=== PATIENT | female | born 1990 | race Caucasian/White ===

== ENCOUNTER 2017-04-11 12:53 | Emergency (ER) | payer OTHER ==
[~2017-04-11 12:53] MED LIST: ZOF4 PO
[2017-04-11 15:22] VITALS: BP 135/91
== END 2017-04-11 15:22 | disposition home or self-care (01) ==
LOC: ED 12:53
DX: K29.70 Gastritis, unspecified, without bleeding (principal)
CPT/HCPCS: Q0162

== ENCOUNTER 2017-04-17 18:31 | Emergency (ER) | payer OTHER ==
[~2017-04-17] VITALS: Ht 172.7 cm; Wt 85.9 kg
[2017-04-17 20:45] VITALS: BP 107/69
== END 2017-04-17 21:10 | disposition home or self-care (01) ==
LOC: ED 18:31
DX: S93.401A Sprain of unspecified ligament of right ankle, initial encounter (principal); R51 Headache; R11.0 Nausea; X50.1XXA Overexertion from prolonged static or awkward postures, initial encounter; Y93.89 Activity, other specified; Y99.8 Other external cause status; Y92.89 Other specified places as the place of occurrence of the external cause
CPT/HCPCS: J1200; J1885; J2765; J7030

== ENCOUNTER 2017-11-23 21:13 | Emergency (ER) | payer OTHER ==
[2017-11-24 00:42] VITALS: BP 127/85
== END 2017-11-24 00:52 | disposition home or self-care (01) ==
LOC: ED 21:13
DX: Z48.01 Encounter for change or removal of surgical wound dressing (principal)

== ENCOUNTER 2018-02-22 16:38 | Emergency (ER) | payer OTHER ==
[~2018-02-22] VITALS: Ht 172.7 cm; Wt 85.7 kg
[2018-02-22 16:46] VITALS: Ht 172.7 cm; Wt 85.7 kg
[2018-02-22 19:10] LABS: UA SPECIFIC GRAVITY 1.025 (1.005-1.035); microscopic required? YES; urine erythrocyte TRACE (NEGATIVE)
[2018-02-22 19:15] LABS: BASOPHIL % 0.5 % (0-2); PLATELET COUNT 312 x10^3mcL (130-400); RED CELL DISTRIBUTION WIDTH 12.2 % (11.5-14.5)
[2018-02-22 19:26] LABS: ALBUMIN 3.7 g/dL (3.4-5.0); ALKALINE PHOSPHATASE 86 U/L (46-116); ALT/SGPT 130 U/L (14-59); AST/SGOT 79 U/L (15-37); BILIRUBIN TOTAL 0.4 mg/dL (0.20-1.00); CALCIUM 9.2 mg/dL (8.5-10.1); CHLORIDE SERUM 106 mmol/L (98-107); CREATININE SERUM 0.6 mg/dL (0.6-1.0); GFR1 > 60 mL/min; GLUCOSE SERUM 87 mg/dL (74-106); LIPASE 123 IU/L (73-393); POTASSIUM SERUM 3.8 mmol/L (3.5-5.1); SODIUM SERUM 142 mmol/L (136-145); TOTAL PROTEIN, SERUM 7.7 g/dL (6.4-8.2)
[2018-02-22 20:04] VITALS: BP 139/73
== END 2018-02-22 20:04 | disposition home or self-care (01) ==
LOC: ED 16:38
PROVIDERS: Emergency Medicine
DX: H66.92 Otitis media, unspecified, left ear (principal); R10.13 Epigastric pain
CPT/HCPCS: 36415

== ENCOUNTER 2018-03-10 15:36 | Emergency (ER) | payer OTHER ==
[~2018-03-10] VITALS: Ht 172.7 cm; Wt 87.5 kg
[2018-03-10 15:45] VITALS: Ht 172.7 cm; Wt 87.5 kg
[2018-03-10 16:47] LABS: BASOPHIL % 0.3 % (0-2); PLATELET COUNT 283 x10^3mcL (130-400); RED CELL DISTRIBUTION WIDTH 12.6 % (11.5-14.5)
[2018-03-10 17:14] LABS: CALCIUM 8.9 mg/dL (8.5-10.1); CARBON DIOXIDE 29.5 mmol/L (21-32); CHLORIDE SERUM 104 mmol/L (98-107); CREATININE SERUM 0.6 mg/dL (0.6-1.0); GFR1 > 60 mL/min; GLUCOSE SERUM 93 mg/dL (74-106); POTASSIUM SERUM 3.7 mmol/L (3.5-5.1); SODIUM SERUM 141 mmol/L (136-145)
[2018-03-10 17:18] LABS: ALBUMIN 3.6 g/dL (3.4-5.0); ALKALINE PHOSPHATASE 70 U/L (46-116); ALT/SGPT 95 U/L (14-59); AMYLASE 48 U/L (25-115); AST/SGOT 40 U/L (15-37); BILIRUBIN TOTAL 0.4 mg/dL (0.20-1.00); LIPASE 139 IU/L (73-393); TOTAL PROTEIN, SERUM 7.1 g/dL (6.4-8.2)
[2018-03-10 19:22] VITALS: BP 107/66
== END 2018-03-10 19:22 | disposition home or self-care (01) ==
LOC: ED 15:36
PROVIDERS: Emergency Medicine
DX: K29.00 Acute gastritis without bleeding (principal)
CPT/HCPCS: 83880; J2405; J3490; Q0092

== ENCOUNTER 2018-10-02 13:55 | Emergency (ER) | payer MEDICAID ==
[~2018-10-02] VITALS: Ht 172.7 cm; Wt 84.8 kg
[2018-10-02 14:30] VITALS: Ht 172.7 cm; Wt 84.8 kg
[2018-10-02 15:51] LABS: BASOPHIL % 0.3 % (0-2); PLATELET COUNT 313 x10^3mcL (130-400); RED CELL DISTRIBUTION WIDTH 12.4 % (11.5-14.5)
[2018-10-02 16:01] LABS: CALCIUM 8.9 mg/dL (8.5-10.1); CARBON DIOXIDE 26.9 mmol/L (21-32); CHLORIDE SERUM 99 mmol/L (98-107); CREATININE SERUM 0.8 mg/dL (0.6-1.0); GFR1 > 60 mL/min; GLUCOSE SERUM 104 mg/dL (74-106); POTASSIUM SERUM 3.9 mmol/L (3.5-5.1); SODIUM SERUM 134 mmol/L (136-145)
[2018-10-02 16:05] LABS: ALKALINE PHOSPHATASE 73 U/L (46-116); ALT/SGPT 17 U/L (14-59); AST/SGOT 18 U/L (15-37); BILIRUBIN TOTAL 0.58 mg/dL (0.20-1.00); URIC ACID 4.8 mg/dL (2.6-6.0)
[2018-10-02 19:49] VITALS: BP 125/79
== END 2018-10-02 19:49 | disposition home or self-care (01) ==
LOC: ED 13:55
PROVIDERS: Emergency Medicine
DX: N20.2 Calculus of kidney with calculus of ureter (principal); Z98.890 Other specified postprocedural states
CPT/HCPCS: J1885; J2405

== ENCOUNTER 2019-08-30 17:47 | Emergency (ER) | payer SELFPAY ==
[~2019-08-30] VITALS: Ht 172.7 cm; Wt 84.4 kg
[2019-08-30 17:54] VITALS: Ht 172.7 cm; Wt 84.4 kg
[2019-08-30 18:56] LABS: BASOPHIL % 0.4 % (0-2); PLATELET COUNT 370 x10^3mcL (130-400); RED CELL DISTRIBUTION WIDTH 12.6 % (11.5-14.5)
[2019-08-30 19:04] LABS: CALCIUM 9.1 mg/dL (8.5-10.1); CARBON DIOXIDE 27.3 mmol/L (21-32); CHLORIDE SERUM 103 mmol/L (98-107); CREATININE SERUM 0.7 mg/dL (0.6-1.0); GFR1 > 60 mL/min; GLUCOSE SERUM 163 mg/dL (74-106); POTASSIUM SERUM 3.2 mmol/L (3.5-5.1); SODIUM SERUM 139 mmol/L (136-145)
[2019-08-30 19:09] LABS: ALBUMIN 3.7 g/dL (3.4-5.0); ALKALINE PHOSPHATASE 97 U/L (46-116); ALT/SGPT 35 U/L (14-59); AST/SGOT 15 U/L (15-37); BILIRUBIN TOTAL 0.36 mg/dL (0.20-1.00); TOTAL PROTEIN, SERUM 7.9 g/dL (6.4-8.2)
[2019-08-30 20:01] VITALS: BP 121/77
== END 2019-08-30 20:01 | disposition home or self-care (01) ==
LOC: ED 17:47
PROVIDERS: Emergency Medicine
DX: R07.89 Other chest pain (principal); R50.9 Fever, unspecified; R05 Cough; Z98.890 Other specified postprocedural states
CPT/HCPCS: 85378; J1885; Q0092

== ENCOUNTER 2019-10-22 07:23 | Emergency (ER) | payer SELFPAY ==
[~2019-10-22] VITALS: Ht 172.7 cm; Wt 83.0 kg
[2019-10-22 07:29] VITALS: Ht 172.7 cm; Wt 83.0 kg
[2019-10-22 11:01] VITALS: BP 120/86
== END 2019-10-22 11:01 | disposition home or self-care (01) ==
LOC: ED 07:23
DX: R51 Headache (principal); R20.2 Paresthesia of skin
CPT/HCPCS: J1885; J7030

== ENCOUNTER 2020-09-01 16:34 | Emergency (ER) | payer MEDICAID, SELFPAY ==
[~2020-09-01] VITALS: Ht 172.7 cm; Wt 82.6 kg
[2020-09-01 16:35] VITALS: BP 120/77; Ht 172.7 cm; Wt 82.6 kg
== END 2020-09-01 20:42 | disposition home or self-care (01) ==
LOC: ED 16:34
DX: J02.9 Acute pharyngitis, unspecified (principal); Z20.828 Contact with and (suspected) exposure to other viral communicable diseases; Z98.890 Other specified postprocedural states
CPT/HCPCS: 87804; U0003